=== PATIENT | female | born 1950 | race Caucasian/White ===

== ENCOUNTER → 2018-02-12 | Outpatient (CLI) | payer OTHER ==
[~2018-02-12] VITALS: Ht 162.6 cm; Wt 63.0 kg
[~2018-02-12] MED LIST: ALLOPURINOL 10100 M1 PO; CELLCEPT 250 M250 MG PO; CLARITIN10 MG PO; COREG6.25 MG PO; CRESTOR10 MG PO; GABAPENTIN 100100 MG PO; HUMALOG100 UNIT/1 SUBQ; INCRUSE ELLI62.5 MCG INH; IRON PO; LISINOPRIL20 MG PO; LOPERAMIDE 2 MG2 M1 PO; OMEPRAZOLE40 MG PO; ONE TOUCH ULTR1 EACH INJECTION; PREDNISONE 5 MG5 M1 PO; SPIRONOLACTONE25 M1 PO; TACROLIMUS0.5 MG PO; ZOLOFT50 MG PO
--- NOTE | ~2018-02-12 | HPC ---
[facility] [place] [address] PAIN MANAGEMENT CONSULTATION Name: FAVIOVENTURALOREN NGUYEN Room #: REG SHARRON Jos#: [id number] Admission: 02/12/18 Attend Phys: Kamron Orta MD Discharge: Date of : 50 Report #: [id number] THIS REPORT FOR: //name// CC: Kamron Bennett DATE OF SERVICE: 02/12/2018 Followup visit for chronic low back pain with radiculopathy. The patient is doing exceptionally well following her epidural injection. She still has pain when she is sitting, but overall the pain is so much better. She scores it as a 4/10. She is here today to discuss renewal of her gabapentin, which she takes at low dose. She takes 100 mg morning, noon and evening without significant side effects. A PQRS review was completed before her discharge. She is currently not a fall risk. She is on no blood thinners, although she remains on treatment for hypertension and all medications were reviewed and reconciled. Blood pressure has been slightly elevated and which I do not believe is due to her low dose gabapentin. She has not signed an opioid agreement and takes no opioid medications at this time. PHYSICAL EXAMINATION: GENERAL APPEARANCE: She is 5 feet 4 inches, 138 pounds, BMI of 23.8. VITAL SIGNS: Blood pressure 149/57, heart rate 75, O2 sat 97. SOCIAL HISTORY: She denies use of tobacco or alcohol. IMPRESSION: Chronic low back pain with radiculopathy, left L4-L5 distribution. She is an excellent responder to transforaminal injection at that level. She does not need an injection today. Medications renewed by phone and for 3 months, I will see her back on an as-needed basis for injection. By: [id number] Kamron Orta MD /nt
[2018-02-12 13:51] VITALS: BP 149/57
== END ==
LOC: PAIN 07:39
DX: M54.16 Radiculopathy, lumbar region (principal); M54.5 Low back pain; G89.29 Other chronic pain; Z79.899 Other long term (current) drug therapy

== ENCOUNTER → 2018-03-19 | Outpatient (CLI) | payer OTHER ==
[~2018-03-19] VITALS: Ht 162.6 cm; Wt 62.7 kg
--- NOTE | ~2018-03-19 | HPC ---
[facility] [address] [place] [address] PAIN MANAGEMENT CONSULTATION Name: VENTURA STAHL Room #: REG SHARRON Arguello#: [id number] Admission: 03/19/18 Attend Phys: Kamron Orta MD Discharge: Date of : 50 Report #: [id number] THIS REPORT FOR: //name// CC: Kamron Bennett DATE OF SERVICE: 03/19/2018 Followup visit for chronic low back pain with radiculopathy, left L4-L5 distribution. The patient returns to pain clinic today for repeat transforaminal injection. She has done very well with these injections. Her last injection was a bit over 2 months ago. Because of her diabetes, we have been using very small amount of triamcinolone just 40 and she receives relief measured in months. She takes a small amount of gabapentin as well 100 t.i.d., which she tolerates and this seems to be somewhat helpful. Today, she reports that once again her pain is fairly severe and radiates down the leg. The intensity when she is getting up and down is 8-9/10. She has no pain on the right. Her most comfortable position is standing and walking and she is indeed standing throughout her visit today. She has no significant changes in her medical history. She has comorbidities of heart disease with stents, pacemaker. She has a kidney transplant that is functioning well. She is not a candidate for anti-inflammatory medications. She has suffered in the past from depression, is currently doing well. She and her just returned from [place] where they went to spend the weekend with her daughter. She seems upbeat, positive about her ability to enjoy her life activities. All medications were reviewed and reconciled. She does not use tobacco or alcohol. She is controlling her blood sugar carefully and her A1c is 6.5. She is on blood pressure medication; however, with Zestril, which she takes on a daily basis. She also takes Zoloft 50 mg once daily and prednisone daily as part of her antirejection regimen. All medications listed on the electronic medical record is noted. PHYSICAL EXAMINATION: Pleasant female. Blood pressure 154/52, heart rate 76, respirations 16. She moves easily from the door to the table, but I did not ask her to sit or stand understanding that this causes her fair amount of pain. She is not a fall risk that is for sure. She is on her feet most of the time. She has tenderness across the low back. She has positive straight leg raising on the left that follows the outer part of her leg, mostly into the L5 distribution with some also crossing into the L4 distribution as well. [address] [address] PAIN MANAGEMENT CONSULTATION Name: VENTURA STAHL Room #: REG Lynda Rodriguez.#: [id number] Admission: 03/19/18 Attend Phys: Kamron Orta MD Discharge: Date of : 50 Report #: [id number] IMPRESSION: Chronic low back pain with radiculopathy. Left L4-L5 distribution. PROCEDURE: Left transforaminal epidural injection under fluoroscopic guidance. PROCEDURE: She was taken to fluoroscopic suite for treatment, placed prone, skin prepped with ChloraPrep. Skin anesthetized over the L4-L5 neural foramen. Using triplanar fluoroscopic views, I advanced the needle into the neural foramen, there was no blood or CSF aspirated. 1 mL of Omnipaque injected with excellent spread of dye into the epidural space followed by 3 mL of 0.5% lidocaine mixed with 40 mg triamcinolone. She tolerated the procedure well and was observed for 45 minutes and discharged. Follow up as needed. By: [id number] Kamron Orta MD /nt
[2018-03-19 10:13] VITALS: BP 154/52
== END | disposition home or self-care (01) ==
LOC: PAIN 06:54
DX: M54.16 Radiculopathy, lumbar region (principal); G89.29 Other chronic pain; E11.9 Type 2 diabetes mellitus without complications; Z98.890 Other specified postprocedural states; Z88.0 Allergy status to penicillin; Z88.8 Allergy status to other drugs, medicaments and biological substances; Z79.899 Other long term (current) drug therapy; Z79.4 Long term (current) use of insulin

== ENCOUNTER → 2018-09-17 | Outpatient (CLI) | payer OTHER ==
[~2018-09-17] VITALS: Ht 162.6 cm; Wt 62.1 kg
[~2018-09-17] MED LIST changes: +ELIQUIS5 MG PO
--- NOTE | ~2018-09-17 | HPC ---
[facility] [place] [address] PAIN MANAGEMENT CONSULTATION Name: FAVIOVENTURASAGE NGUYEN Room #: REG [facility] Jennifer.#: [id number] Admission: 09/17/18 ������������������ Attend Phys: Kamron Orta MD Discharge: ������������������ Date of : 50 Report #: [id number] THIS REPORT FOR: //name// CC: Kamron Bennett MD DATE OF SERVICE: 09/17/2018 Followup visit for recurring low back pain with radiculopathy, left L4-L5 distribution. The patient has been an excellent responder to transforaminal injections. We performed her first injection in December 2017 and a second injection in March. She and her then moved to [place] for the winter where they stayed to be closer to family. She has done very well. When she first came to my office, she was in a wheelchair. She has now been walking and has even done a 5K walk. We reviewed her transforaminal injection. We have excellent film showing spread of the medication within the L4-L5 neural foramen. Given her good response to the injection and sustained improvement, we plan to repeat the injection today. No other significant changes have been noted other than improvement. She has comorbidities of heart disease with stents, pacemaker. She has a transplanted kidney that is functioning well. We will avoid all anti-inflammatory medications. Depression has been well managed. She does have some elevation of blood sugar and we have been using 40 mg of triamcinolone for the injection rather than usual 80. Her elevation lasts only about 4 days and then returns. She does take Eliquis and understands the system plan. Now, she has been off her Eliquis for 3 days in anticipation of her injection. It should be safe to go forward. All medications have been reviewed and reconciled. There have been no substantial changes. She is treated for hypertension. She denies use of tobacco and also denies use of alcohol. She is on no opioid medications. She is not a fall risk. She remains active in physical. PHYSICAL EXAMINATION: GENERAL: Pleasant, alert and oriented. VITAL SIGNS: Blood pressure 181/77, heart rate 71. BMI 23.5. [address] [address] PAIN MANAGEMENT CONSULTATION Name: VENTURA STAHLEMILIANA Room #: REG [facility].#: [id number] Admission: 09/17/18 ������������������ Attend Phys: Kamron Orta MD Discharge: ������������������ Date of : 50 Report #: [id number] She moves easily from sitting to standing position, walks without antalgic features. She has pain across her low back. She has some discomfort radiating once again through the left leg following an L4-L5 distribution. IMPRESSION: Chronic low back pain with radiculopathy, L4-L5 distribution. PROCEDURE: Left L4-L5 transforaminal epidural injection. She was taken to the fluoroscopic suite. She was placed prone, skin was prepped with ChloraPrep. Skin anesthetized over the L4-L5 neural foramen on the left. Using triplanar fluoroscopic views, I advanced the needle into the neural foramen. There was no discomfort with needle placement. As I began to inject the initial radiographic dye, she complained of significant pain radiating into the left leg. The injection was stopped and I pulled the needle back and repositioned it slightly. Local anesthetic was injected through the neural foramen. I had injected enough medication initially to identify an excellent epidurogram and similar spread of our dye. Needle was felt to be appropriately located. Once the discomfort had slowly diminished, once again injected with 1 mL of Omnipaque with excellent epidurogram and spread along the L4 nerve root. This was then followed by 3 mL of 0.5% lidocaine and 40 mg of triamcinolone. She tolerated the procedure well. Pain score was 0 at the conclusion of the procedure and in recovery room. She had mild amount of weakness, but kept a little bit longer. This is likely related to the additional 4-5 mL of 1% lidocaine that was injected along the nerve root to ease her discomfort. Followup will be planned on an as needed basis. In the future, she can reach us by phone if there are any persistent pains following the resolution of the local anesthetic. ��������������������������������������������� ���������������������������������������� By: ��������������������������������������������� [id number] Kamron Orta MD /nt
[2018-09-17 14:21] VITALS: BP 181/77
--- NOTE | 2018-09-17 14:37 | NUR ---
Pain Clinic Assessment: 1. History of Osteoarthritis: joints spine History of Rheumatoid Arthritis: Not Applicable 2. Height: 5 ft. 4 in. 162.6 cm. Weight: 136.8 lb. oz. 62.052 kg. Patient's BMI: 23.5 3. Vital Signs: BP: 181/77 Pulse: 71 Resp: 16 Temp: 02 Sat: 99 ECG Mon: 4. Pain Intensity: 10 at times 5. Fall Risk: Dizziness: N Needs help standing or walking: N Fallen in the last 3 months: N Fall risk comments: 6. Patient on Blood Thinner: *eliquis 7. History of Hypertension: Y 8. Opioid Therapy greater than 6 weeks: N Opiate Contract Signed: 9. Risk Assessment Tool Provided: low 10. Functional Assessment Tool: 11. Recreational Drug Use: Never Drug Type: Tobacco Use: Never Smoker Tobacco Type: Amount or Packs/day: How Many Years: Alcohol Use: No Frequency: Quant:
== END | disposition home or self-care (01) ==
LOC: PAIN 06:59
DX: M54.16 Radiculopathy, lumbar region (principal); G89.29 Other chronic pain; I11.9 Hypertensive heart disease without heart failure; Z94.0 Kidney transplant status; Z95.0 Presence of cardiac pacemaker; F32.9 Major depressive disorder, single episode, unspecified; Z79.01 Long term (current) use of anticoagulants; Z98.890 Other specified postprocedural states; Z79.899 Other long term (current) drug therapy; Z88.0 Allergy status to penicillin; Z88.2 Allergy status to sulfonamides; Z79.4 Long term (current) use of insulin

== ENCOUNTER → 2021-01-25 | Outpatient (CLI) | payer OTHER ==
[~2021-01-25] VITALS: Ht 160 cm; Wt 56.5 kg
[~2021-01-25] MED LIST changes: +ACIDOPHILUS PR1 EAC2 PO; +ANTACID650 MG PO; +AZATHIOPRINE50 MG PO; +EPOGEN2000 UNIT/ INJECTION; +NORVASC5 MG PO; +PROTONIX40 M2 PO; +TORSEMIDE20 MG PO; +VITAMIN B12-FO1 EAC1 PO; +VITAMIN D31250 MCG PO; +XIFAXAN550 M1 PO; +[UNRECOGNIZED DRUG - OTHER] PO
[2021-01-25 10:40] VITALS: BP 127/64
--- NOTE | 2021-01-25 11:04 | NUR ---
Pain Clinic Assessment: 1. History of Osteoarthritis: joints spine History of Rheumatoid Arthritis: Not Applicable 2. Height: 5 ft. 3 in. 160.0 cm. Weight: 124.6 lb. oz. 56.518 kg. Patient's BMI: 22.1 3. Vital Signs: BP: 127/64 Pulse: 73 Resp: 14 Temp: 02 Sat: 100 ECG Mon: 4. Pain Intensity: 8 5. Fall Risk: Dizziness: Y Needs help standing or walking: N Fallen in the last 3 months: N Fall risk comments: 6. Patient on Blood Thinner: ELIQUIS 7. History of Hypertension: Y 8. Opioid Therapy greater than 6 weeks: N Opiate Contract Signed: 9. Risk Assessment Tool Provided: low 10. Functional Assessment Tool: 11. Recreational Drug Use: Never Drug Type: Tobacco Use: Never Smoker Tobacco Type: Amount or Packs/day: How Many Years: Alcohol Use: No Frequency: Quant:
== END ==
LOC: PAIN 07:45
PROVIDERS: ATTEND Anesthesiology Pain Medicine
DX: M54.16 Radiculopathy, lumbar region (principal); M79.605 Pain in left leg; M25.572 Pain in left ankle and joints of left foot; Z94.0 Kidney transplant status; Z90.49 Acquired absence of other specified parts of digestive tract; Z98.84 Bariatric surgery status; Z98.49 Cataract extraction status, unspecified eye; Z95.0 Presence of cardiac pacemaker

== ENCOUNTER → 2021-02-01 | Outpatient (CLI) | payer OTHER ==
[~2021-02-01] VITALS: Ht 160 cm; Wt 53.5 kg
[2021-02-01 13:06] VITALS: BP 137/64
== END | disposition home or self-care (01) ==
LOC: PAIN 11:10
PROVIDERS: ATTEND Anesthesiology Pain Medicine
DX: M54.16 Radiculopathy, lumbar region (principal); G89.29 Other chronic pain; I10 Essential (primary) hypertension; E11.9 Type 2 diabetes mellitus without complications; M19.90 Unspecified osteoarthritis, unspecified site; J45.909 Unspecified asthma, uncomplicated; Z98.890 Other specified postprocedural states; Z79.899 Other long term (current) drug therapy; Z90.49 Acquired absence of other specified parts of digestive tract; Z98.84 Bariatric surgery status; Z79.01 Long term (current) use of anticoagulants; Z88.0 Allergy status to penicillin; Z88.2 Allergy status to sulfonamides; Z95.0 Presence of cardiac pacemaker; Z94.0 Kidney transplant status; Z79.4 Long term (current) use of insulin